=== PATIENT | female | born 1990 ===

== ENCOUNTER 2020-01-13 08:49 | Inpatient (IN) | payer BC ==
[~2020-01-13] VITALS: Ht 167.6 cm; Wt 78.1 kg
[2020-01-13 09:02] VITALS: BP 118/76
[2020-01-13] MEDS ORDERED: PREN1TAB62 PO (09:07)
[2020-01-13] MEDS ORDERED: ONDANSETRON 2MG/ML, 2ML IVPush PRN (09:30)
[2020-01-13] MEDS ORDERED: CALCIUM CARBONATE 500 MG TAB.CHEW PO PRN ×2 (09:30→17:30)
[2020-01-13] MEDS ORDERED: TERBUTALINE 1 MG/ML, 1ML IVPush PRN (09:30)
[2020-01-13] MEDS ORDERED: FENTANYL PF 100 MCG/2ML IVPush PRN (09:30)
[2020-01-13] MEDS ORDERED: FENTANYL PF 100 MCG/2ML IV PRN (09:30)
[2020-01-13] MEDS ORDERED: TERBUTALINE 1 MG/ML, 1ML SQ PRN (09:30)
[2020-01-13] MEDS ORDERED: LIDOCAINE 1%, 20ML ONE (09:43)
[2020-01-13] MEDS ORDERED: OXYTOCIN 30U/ 0.9% NaCL 500ML 500 ML ONE ×2 (09:43→18:21)
[2020-01-13] MEDS ORDERED: MISOPROSTOL 200 MCG TABLET ONE (09:43)
[2020-01-13 09:56] LABS: BASOPHILS # (AUTO) 0.08 x10^3/uL (0-0.1); BASOPHILS % (AUTO) 1 % (0-1); EOSINOPHILS # (AUTO) 0.04 x10^3/uL (0-0.4); EOSINOPHILS % (AUTO) 0 % (1-7); LYMPHOCYTES # (AUTO) 1.94 x10^3/uL (1-3.4); LYMPHOCYTES % (AUTO) 17 % (22-44); MD NO; MEAN CORPUSCULAR HEMOGLOBIN 27.9 pg (27.0-34.8); MEAN PLATELET VOLUME 8.6 fL (7.4-10.4); MONOCYTES # (AUTO) 0.58 x10^3/uL (0.2-0.8); MONOCYTES % (AUTO) 5 % (2-9); NEUTROPHILS # (AUTO) 8.87 x10^3/uL (1.8-6.8); NEUTROPHILS % (AUTO) 77 % (42-75); PLATELET COUNT 226 x10^3/uL (130-400); RED BLOOD COUNT 4.18 x10^6/uL (3.82-5.3)
[2020-01-13] MEDS: LACTATED RINGERS 1,000 ML IV SCH ×2 (09:56→16:46)
[2020-01-13] MEDS ORDERED: PENICILLIN GK 5,000,000 UNITS in DEXTROSE 5% 100 ML IVPB ONE (10:00)
[2020-01-13] MEDS ORDERED: D5%-LACTATED RINGERS 1,000 ML IV SCH (10:00)
[2020-01-13] MEDS ORDERED: OXYTOCIN 30U/ 0.9% NaCL 500ML 500 ML IV ONE (10:00)
[2020-01-13] MEDS ORDERED: NEWBORN KIT ONE (10:22)
[2020-01-13 11:02] LABS: AMPHETAMINE SCREEN, URINE Negative (Negative); BARBITURATE SCREEN, URINE Negative (Negative); BENZODIAZEPINE SCREEN, URINE Negative (Negative); CANNABINOID SCREEN, URINE Negative (Negative); COCAINE SCREEN, URINE Negative (Negative); METHADONE SCREEN, URINE Negative (Negative); OPIATE SCREEN, URINE Negative (Negative)
[2020-01-13] MEDS ORDERED: OXYTOCIN 30U/ 0.9% NaCL 500ML 500 ML IV PRN (12:46)
[2020-01-13] MEDS ORDERED: PENICILLIN GK 2,500,000 UNITS in DEXTROSE 5% 100 ML IVPB SCH (14:00)
[2020-01-13] MEDS ORDERED: FENTANYL/BUPIV./NS/PF 250 ML EPIDCONT ONE (14:55)
[2020-01-13] MEDS ORDERED: ONDANSETRON 2MG/ML, 2ML ONE (16:40)
[2020-01-13] MEDS ORDERED: FENTANYL PF 100 MCG/2ML ONE (17:05)
[2020-01-13] MEDS ORDERED: IBUPROFEN 600 MG TABLET ONE (17:13)
[2020-01-13] MEDS ORDERED: MISOPROSTOL 200 MCG TABLET PR PRN (17:30)
[2020-01-13] MEDS: IBUPROFEN 800 MG TABLET PO PRN ×2 (17:30→23:43)
[2020-01-13] MEDS ORDERED: SIMETHICONE 80 MG CHEW TAB PO PRN (17:30)
[2020-01-13] MEDS ORDERED: DOCUSATE 100 MG CAPSULE PO PRN (17:30)
[2020-01-13] MEDS ORDERED: ACETAMINOPHEN 325 MG TABLET PO PRN (17:30)
[2020-01-13] MEDS ORDERED: MEASLES,MUMPS&RUBELLA VACC/PF 0.5 ML SQ-VACC PRN (17:30)
[2020-01-13] MEDS: OXYTOCIN 30U/ 0.9% NaCL 500ML 500 ML IV SCH ×2 (18:22→22:22)
[2020-01-13] MEDS ORDERED: FENTANYL PF 100 MCG/2ML IV ONE (18:30)
[2020-01-13 19:30] VITALS: BP 97/60
[2020-01-13 23:33] VITALS: BP 93/56
[2020-01-14 01:21] LABS: BASOPHILS # (AUTO) 0.03 x10^3/uL (0-0.1); BASOPHILS % (AUTO) 0 % (0-1); EOSINOPHILS # (AUTO) 0.01 x10^3/uL (0-0.4); EOSINOPHILS % (AUTO) 0 % (1-7); LYMPHOCYTES # (AUTO) 1.73 x10^3/uL (1-3.4); LYMPHOCYTES % (AUTO) 14 % (22-44); MD NO; MEAN CORPUSCULAR HEMOGLOBIN 28.1 pg (27.0-34.8); MEAN CORPUSCULAR HGB CONC 32.3 g/dL (32.4-35.8); MEAN PLATELET VOLUME 8.8 fL (7.4-10.4); MONOCYTES # (AUTO) 0.83 x10^3/uL (0.2-0.8); MONOCYTES % (AUTO) 7 % (2-9); NEUTROPHILS # (AUTO) 10.08 x10^3/uL (1.8-6.8); NEUTROPHILS % (AUTO) 80 % (42-75); PLATELET COUNT 204 x10^3/uL (130-400); RED CELL DISTRIBUTION WIDTH 13.7 % (9.6-15.2)
[2020-01-14 03:54] VITALS: BP 104/66
[2020-01-14 08:30] VITALS: BP 95/57
[2020-01-14] MEDS ORDERED: IBUP-1222 PO (08:30)
[2020-01-14] MEDS: IBUPROFEN 800 MG TABLET PO PRN ×2 (08:36→17:40)
[2020-01-14] MEDS ORDERED: PRENATAL VIT/IRON/FA 1 EACH TABLET PO SCH (09:00)
[2020-01-14] MEDS: HYDROcodone/APAP 5/325 TABLET PO PRN ×2 (09:37→17:41)
[2020-01-14 11:58] VITALS: BP 114/77
[2020-01-14] MEDS: OXYTOCIN 30U/ 0.9% NaCL 500ML 500 ML IV SCH (13:15)
[2020-01-14 15:46] VITALS: BP 100/68
== END 2020-01-14 19:30 | disposition home or self-care (01) | DRG 807 ==
LOC: LDOP 08:49 → LDIP 09:18 → 2NW 19:15
PROVIDERS: ADMIT Student in an Organized Health Care Education/Training Program; ATTEND Student in an Organized Health Care Education/Training Program
PROC: 10E0XZZ Delivery of Products of Conception, External Approach (ICD-10-PCS; principal; 2020-01-13)
PROC: 3E0R3BZ Introduction of Anesthetic Agent into Spinal Canal, Percutaneous Approach (ICD-10-PCS; 2020-01-13)
PROC: 00HU33Z Insertion of Infusion Device into Spinal Canal, Percutaneous Approach (ICD-10-PCS; 2020-01-13)
DX: O99.824 Streptococcus B carrier state complicating childbirth (principal); Z37.0 Single live birth; Z3A.39 39 weeks gestation of pregnancy; Z03.818 Encounter for observation for suspected exposure to other biological agents ruled out
CPT/HCPCS: 36415; J3490; 80307; 85025; 86592; 86850; 86900; 87635; G0378; J2405; J2540; J3010; J2590; J7120